=== PATIENT | male | born 1955 | race Caucasian/White ===

== ENCOUNTER 2019-09-11 07:16 | Emergency (ER) | payer MEDICARE, OTHER ==
[~2019-09-11 07:16] MED LIST: Sodium Chloride 0.9% 10 ML Syringe FLUSH PRN
--- NOTE | 2019-09-11 07:17 | EDM.PDOC ---
ED HPI GENERAL MEDICAL PROBLEM - General Chief Complaint: Chest Pain Stated Complaint: AMBULANCE Time Seen by Provider: 09/11/19 07:17 Source of Information: Reports: Patient, EMS, RN, RN Notes Reviewed History Limitations: Reports: No Limitations - History of Present Illness INITIAL COMMENTS - FREE TEXT/NARRATIVE: Pt arrives by [facility] ambulance with c/o sudden onset of severe chest pain this morning. Pt states he this morning with intense left arm pain, then became diaphoretic and noticed his left upper chest hurt also. He took Aspirin 162mg. On arrival to the ER the pt was pain free. He did not take any Nitroglycerin. Pt states the pain went away while he was in the ambulance. He denies palpitations, syncope, lightheadedness, orthopnea, edema, or shortness of breath. He admits to seasonal congestion with mild cough, which is routine for him this time of year. Pt has Hx of several similar episodes of chest pain over the past several years which resulted in negative chest pain evaluations in ER' s or with overnight admissions. Pt denies shortness of breath, eye irritation/ drainage, loss of taste or smell, red tongue, rash or skin lesions, abdominal pain, N/V/D, fevers, chills, recent travel, or known exposure to confirmed or suspected Covid-19 cases. Onset: Today, Sudden Duration: Resolved Prior to Arrival Location: Reports: Chest, Radiates to (left arm) Quality: Reports: Ache Severity: Severe Improves with: Reports: None Worsens with: Reports: None Associated Symptoms: Reports: No Other Symptoms - Related Data Allergies Allergy/AdvReac Type Severity Reaction Status Date / Time fabric softners AdvReac sneezing, Uncoded 09/11/19 07:44 stuffed up pet dander AdvReac sneezing, Uncoded 09/11/19 07:44 stuffed up Home Meds: Home Meds Rosuvastatin [Crestor] 10 mg PO BEDTIME 09/11/19 [History] Past Medical History Cardiovascular History: Reports: High Cholesterol Respiratory History: Reports: Other (See Below) (Chronic tobacco dependence) Musculoskeletal History: Reports: Neck Pain, Chronic Neurological History: Reports: Other (See Below) (Cervical radiculopathy) Social & Family History - Family History Family Medical History: Noncontributory ED ROS GENERAL - Review of Systems Review Of Systems: Comprehensive ROS is negative, except as noted in HPI. ED EXAM, GENERAL - Physical Exam Exam: See Below Exam Limited By: No Limitations General Appearance: Alert, WD/WN, No Apparent Distress, Anxious Eye Exam: Bilateral Eye: Normal Inspection Ears: Normal External Exam, Hearing Grossly Normal Nose: Normal Mucosa, No Blood, Other (Mild congestion.) Throat/Mouth: Normal Inspection, Normal Lips, Normal Teeth, Normal Gums, Normal Oropharynx, Normal Voice, No Airway Compromise Head: Atraumatic, Normocephalic Neck: Normal Inspection, Supple, Non-Tender, Full Range of Motion Respiratory/Chest: No Respiratory Distress, Lungs Clear, Normal Breath Sounds, No Accessory Muscle Use, Chest Non-Tender Cardiovascular: Normal Peripheral Pulses, Regular Rate, Rhythm, No Edema, No Gallop, No JVD, No Murmur, No Rub GI/Abdominal: Normal Bowel Sounds, Soft, Non-Tender, No Organomegaly, No Distention, No Abnormal Bruit, No Mass (Male) Exam: Deferred Rectal (Males) Exam: Deferred Back Exam: Normal Inspection Extremities: Normal Inspection, Normal Range of Motion, Non-Tender, Normal Capillary Refill, No Pedal Edema Neurological: Alert, Oriented, CN II-XII Intact, Normal Cognition, Normal Gait, No Motor/Sensory Deficits Psychiatric: Normal Affect, Normal Mood Skin Exam: Warm, Dry, Intact, Normal Color, No Rash EKG INTERPRETATION EKG Date: 09/11/19 Time: 07:26 Rhythm: Other ([place]) Rate (Beats/Min): 53 [place]: Normal P-Wave: Present QRS: Wide (Borderline IVCD) ST-T: Normal QT: Normal Comparison: NA - No Prior EKG EKG Interpretation Comments: Repeat EKG @1125HRS: [place], Rate 57, no acute ischemic changes, no change compared to prior EKG. Course - Vital Signs Last Recorded V/S: Last Vital Signs Temp 97.5 F 09/11/19 07:16 Pulse 53 L 09/11/19 07:16 Resp 14 09/11/19 07:16 BP 137/78 09/11/19 12:00 Pulse Ox 100 09/11/19 07:16 - Orders/Labs/Meds Orders: Active Orders 24 hr Category Date Time Status EKG 12 Lead [EKG Documentation Completion] [RC] Care 09/11/19 11:30 Active ASDIRECTED EKG 12 Lead [EKG Documentation Completion] [RC] STAT Care 09/11/19 07:16 Active Peripheral IV Care [RC] . DIRECTED Care 09/11/19 07:16 Active Sodium Chloride 0.9% [Saline Flush] Med 09/11/19 07:16 Active 10 ml FLUSH ASDIRECTED PRN Peripheral IV Insertion Adult [OM.PC] Stat Oth 09/11/19 07:16 Ordered Medication Orders Sodium Chloride (Saline Flush) 10 ml FLUSH ASDIRECTED PRN PRN Reason: Keep Vein Open Labs: Laboratory Tests 09/11/19 09/11/19 09/11/19 Range/Units 07:26 07:26 07:26 WBC 11.3 H (5.0-10.0) 10^3/uL RBC 4.28 L (4.6-6.2) 10^6/uL Hgb 13.8 L (14.0-18.0) g/dL Hct 42.1 (40.0-54.0) % MCV 98.4 (80-100) fL MCH 32.2 (27.0-34.0) pg MCHC 32.8 L (33.0-35.0) g/dL Plt Count 244 (150-450) 10^3/uL Neut % (Auto) 58.5 (42.2-75.2) % Lymph % (Auto) 25.6 (20.5-50.1) % [place] % (Auto) 9.3 H (2-8) % Eos % (Auto) 5.8 H (1.0-3.0) % Baso % (Auto) 0.8 (0.0-1.0) % PT 9.9 (9.0-12.0) SEC INR 1.0 (0.9-1.2) APTT 20.6 L (22.0-34.0) SEC D-Dimer, Quantitative (0-400) ng/mL Sodium 142 (136-145) mmol/L Potassium 3.9 (3.5-5.1) mmol/L Chloride 105 (98-107) mmol/L Carbon Dioxide 27 (21-32) mmol/L Anion Gap 13.9 H (7-13) mEq/L BUN 18 (7-18) mg/dL Creatinine 0.95 (0.70-1.30) mg/dL Est Cr Clr Drug Dosing 80.04 mL/min Estimated GFR (MDRD) > 60 BUN/Creatinine Ratio 18.9 (No establ ref range) Glucose 124 H (74-99) mg/dL Calcium 8.4 L (8.5-10.1) mg/dL Total Bilirubin 0.3 (0.2-1.0) mg/dL AST 15 (15-37) U/L ALT 29 (16-63) U/L Alkaline Phosphatase 50 (46-116) U/L Troponin I < 0.017 (0.000-0.056) ng/mL Total Protein 6.6 (6.4-8.2) g/dL Albumin 3.7 (3.4-5.0) g/dL Globulin 2.9 Albumin/Globulin Ratio 1.3 Lipase 129 (73-393) U/L 09/11/19 09/11/19 Range/Units 07:26 11:24 WBC (5.0-10.0) 10^3/uL RBC (4.6-6.2) 10^6/uL Hgb (14.0-18.0) g/dL Hct (40.0-54.0) % MCV (80-100) fL MCH (27.0-34.0) pg MCHC (33.0-35.0) g/dL Plt Count (150-450) 10^3/uL Neut % (Auto) (42.2-75.2) % Lymph % (Auto) (20.5-50.1) % [place] % (Auto) (2-8) % Eos % (Auto) (1.0-3.0) % Baso % (Auto) (0.0-1.0) % PT (9.0-12.0) SEC INR (0.9-1.2) APTT (22.0-34.0) SEC D-Dimer, Quantitative < 100 (0-400) ng/mL Sodium (136-145) mmol/L Potassium (3.5-5.1) mmol/L Chloride (98-107) mmol/L Carbon Dioxide (21-32) mmol/L Anion Gap (7-13) mEq/L BUN (7-18) mg/dL Creatinine (0.70-1.30) mg/dL Est Cr Clr Drug Dosing mL/min Estimated GFR (MDRD) BUN/Creatinine Ratio (No establ ref range) Glucose (74-99) mg/dL Calcium (8.5-10.1) mg/dL Total Bilirubin (0.2-1.0) mg/dL AST (15-37) U/L ALT (16-63) U/L Alkaline Phosphatase (46-116) U/L Troponin I 0.042 (0.000-0.056) ng/mL Total Protein (6.4-8.2) g/dL Albumin (3.4-5.0) g/dL Globulin Albumin/Globulin Ratio Lipase (73-393) U/L Meds: Medications Generic Name Dose Route Start Last Admin Trade Name Freq PRN Reason Stop Dose Admin Sodium Chloride 10 ml 09/11/19 07:16 Saline Flush FLUSH ASDIRECTED PRN Keep Vein Open Discontinued Medications Generic Name Dose Route Start Last Admin Trade Name Freq PRN Reason Stop Dose Admin Aspirin 162 mg 09/11/19 07:19 09/11/19 07:31 Aspirin PO 09/11/19 07:20 162 mg ONETIME ONE Administration - Radiology Interpretation Free Text/Narrative:: XR Chest: no acute process per Rad. report. - Re-Assessments/Exams Free Text/Narrative Re-Assessment/Exam: 09/11/19 08:16 Pt agrees to stay as extended ER for repeat Troponin and EKG at 1130HRS this morning for chest pain rule out. 09/11/19 12:00 Pt's 4 hour Troponin returned at 0.042, which is >than 2.5 times the initial result, but not in the rule in range of >0.057. Given the pt has had multiple episodes of chest pain, I think he warrants further evaluation. Dr. Mathias accepts the pt to [facility]. A call back indicated the pt will be admitted by Dr. Barrera. Departure - Departure Time of Disposition: 13:02 Disposition: DC/Tfer to [facility] 02 Reason for Transfer *Q: Primary PCI Indicated Condition: Good, Undetermined Clinical Impression: Chest pain Qualifiers: Chest pain type: unspecified Qualified Code(s): R07.9 - Chest pain, unspecified Forms: ED Department Discharge, Interfacility Transfer EMTALA Sepsis Event Note - Focused Exam Vital Signs: Vital Signs Temp Pulse Resp BP Pulse Ox 09/11/19 12:00 137/78 09/11/19 11:00 141/81 H 09/11/19 10:10 141/74 H 09/11/19 07:16 97.5 F 53 L 14 144/75 H 100 Date Exam was Performed: 09/11/19 Time Exam was Performed: 12:59 - My Orders Last 24 Hours: My Active Orders 09/11/19 07:16 EKG 12 Lead [EKG Documentation Completion] [RC] STAT Peripheral IV Care [RC] . DIRECTED Sodium Chloride 0.9% [Saline Flush] 10 ml FLUSH ASDIRECTED PRN Peripheral IV Insertion Adult [OM.PC] Stat 09/11/19 11:30 EKG 12 Lead [EKG Documentation Completion] [RC] ASDIRECTED - Assessment/Plan Last 24 Hours: My Active Orders 09/11/19 07:16 EKG 12 Lead [EKG Documentation Completion] [RC] STAT Peripheral IV Care [RC] . DIRECTED Sodium Chloride 0.9% [Saline Flush] 10 ml FLUSH ASDIRECTED PRN Peripheral IV Insertion Adult [OM.PC] Stat 09/11/19 11:30 EKG 12 Lead [EKG Documentation Completion] [RC] ASDIRECTED
[2019-09-11] MEDS: Aspirin 81 MG Tab.Chew PO ONE (07:31)
--- NOTE | 2019-09-11 07:48 | CR ---
PROCEDURE INFORMATION: Exam: XR Chest, 1 View Exam date and time: 09/11/2019 7:40 AM Age: 64 years old Clinical indication: Chest pain TECHNIQUE: Imaging protocol: XR of the chest Views: 1 view. COMPARISON: No relevant prior studies available. FINDINGS: Lungs: No lung consolidation or pulmonary edema. Pleural space: No pleural effusion or pneumothorax. Heart/Mediastinum: The cardiac silhouette is not enlarged. The mediastinal contours are normal. Bones/joints: No acute osseous abnormality. Soft tissues: There are bilateral epicardial fat pads. IMPRESSION: No acute abnormality.
[2019-09-11 07:52] LABS: ANION GAP 13.9 mEq/L (7-13); CHLORIDE,CL 105 mmol/L (98-107); SODIUM,NA 142 mmol/L (136-145)
[2019-09-11 07:55] LABS: PTT,PARTIAL THROMBOPLSTIN TIME 20.6 SEC (22.0-34.0)
== END 2019-09-11 13:16 ==
LOC: DL.ED 07:16
DX: R07.9 Chest pain, unspecified (principal); E78.00 Pure hypercholesterolemia, unspecified; Z91.09 Other allergy status, other than to drugs and biological substances; Z79.899 Other long term (current) drug therapy
CPT/HCPCS: 36415; 71045; 80053; 83690; 84484; 85025; 85379; 85610; 85730; 93005; 99285; A9270